=== PATIENT | female | born 1975 | race Caucasian/White ===

== ENCOUNTER 2016-11-26 05:53 | Day surgery (SDC) | payer BC, OTHER ==
[2016-11-23 11:52] VITALS: BMI 26.7
[2016-11-26] MEDS ORDERED: SUCCINYLCHOLINE CHLORIDE 200 MG/10 ML VIAL ONE (07:25)
[2016-11-26] MEDS ORDERED: LIDOCAINE HCL/PF 2% SDV 5ML VIAL ONE (07:25)
[2016-11-26] MEDS ORDERED: PROPOFOL 20 ML ONE ×2 (07:25→09:05)
[2016-11-26] MEDS ORDERED: MIDAZOLAM HCL 2 MG/2 ML SINGLE DOSE VIAL ONE (08:19)
[2016-11-26] MEDS ORDERED: DEXAMETHASONE SOD PHOSPHATE 4 MG/1 ML VIAL ONE (09:03)
[2016-11-26 09:58] VITALS: TEMP 98.4
[2016-11-26] MEDS ORDERED: oxyCODONE HCL 5 MG TABLET PO PRN (10:12)
[2016-11-26] MEDS ORDERED: ONDANSETRON 4 MG/2 ML VIAL IVPUSH PRN (10:12)
[2016-11-26] MEDS ORDERED: PROMETHAZINE HCL 25 MG/1 ML VIAL IVPUSH PRN (10:12)
[2016-11-26] MEDS ORDERED: ACETAMINOPHEN 325 MG TABLET (FP) PO PRN ×2 (10:14→12:51)
[2016-11-26] MEDS ORDERED: IBUPROFEN 400 MG TABLET (FP) PO PRN ×2 (10:14→12:51)
--- NOTE | 2016-11-26 10:14 | HP ---
History & Physical Update - History History: No Change - Physical Physical: No Change - Assessment Assessment: No Change - Plan Plan: No Change
[2016-11-26] MEDS ORDERED: LACTATED RINGERS SOLUTION 1,000 ML IV SCH (10:15)
[2016-11-26 12:31] VITALS: BP 95/63; PULSE 62
--- NOTE | 2016-11-26 15:54 | OP ---
Operative Note - Note: Operative Date: 11/26/16 Pre-Operative Diagnosis: Endometrial polyp. Submucosal myoma Operation: Hysteroscopic myomectomy. Suction DC Post-Operative Diagnosis: Same as Pre-op Anesthesia: General Estimated Blood Loss (mls): 30 Operative Report Dictated: Yes
--- NOTE | 2016-11-27 09:18 | OP ---
DATE OF OPERATION: 11/26/2016 SURGEON: Daisy Ignacio MD PREOPERATIVE DIAGNOSIS: Menorrhagia, endometrial polyps, and submucosal myoma. PROCEDURE: Patient was taken to the operating room, placed in dorsal lithotomy position, prepped and draped in the usual sterile fashion. A time-out was performed, in accordance with hospital regulations. A speculum was placed in the vagina. Anterior lip of the cervix was grasped with a single-tooth tenaculum. Cervix was then dilated to accommodate the operative hysteroscope. Hysteroscopy was then performed. A cavity was seen to be partially occluded anteriorly. Cautery was then used on the anterior portion of the uterus, and submucosal myoma was cut away. A large amount of anterior myoma was removed. Some endometrial polyps were seen and were also removed from the cavity. Suction dilatation and curettage was then performed. After incision cutting of the anterior aspect of the uterus and removal of polyps using cutting aspect of the resectoscope, suction dilatation and curettage was then performed. Estimated blood loss was about 30 mL. All instruments were then removed. Patient had tolerated the procedure well and was taken to the recovery room in stable condition. DAISY IGNACIO M.D. [id number]
--- NOTE | 2016-11-27 12:49 | PATH ---
Surgical Pathology Report Patient Name: BHUMI PAYNE [facility]. Rec. #: [id number] /Age/Gender: 1975 (Age: 40) / F Account: [id number] Location: [facility] SURGICAL Taken: 11/26/2016 Received: 11/26/2016 Reported: 11/27/2016 Physicians: Daisy Ignacio M.D. Specimen(s) Received UTERINE POLYP Clinical History Uterine polyp Final Diagnosis UTERINE POLYP, HYSTEROSCOPIC MYOMECTOMY, SUCTION DILATION AND CURETTAGE: POLYPOID FRAGMENTS OF SECRETORY ENDOMETRIUM WITH AREAS MOST CONSISTENT WITH ENDOMETRIAL POLYP. FRAGMENTS OF BENIGN SMOOTH MUSCLE. Electronically Signed Silvano Reyes M.D. Gross Description Received in formalin labeled "uterine polyp" is a 5.0 x 4.3 x 0.4 cm aggregate of flowers-pink soft tissue fragments. The formalin is filtered and the specimen is entirely submitted in 4 cassettes. /11/26/2016 saudi11/26/2016
== END 2016-11-26 12:00 | disposition home or self-care (01) ==
LOC: JASU-SURG 05:53
PROVIDERS: ATTEND Obstetrics & Gynecology
PROC: 0UB98ZX Excision of Uterus, Via Natural or Artificial Opening Endoscopic, Diagnostic (ICD-10-PCS; principal; 2016-11-26 08:30)
PROC: 0UDB8ZX Extraction of Endometrium, Via Natural or Artificial Opening Endoscopic, Diagnostic (ICD-10-PCS; 2016-11-26 08:30)
PROC: 0UB98ZZ Excision of Uterus, Via Natural or Artificial Opening Endoscopic (ICD-10-PCS; 2016-11-26 08:30)
DX: N92.0 Excessive and frequent menstruation with regular cycle (principal); N84.0 Polyp of corpus uteri; D25.0 Submucous leiomyoma of uterus
CPT/HCPCS: 84703; 88305-TC; 94760

== ENCOUNTER → 2021-02-09 | Day surgery (SDC) | payer BC, OTHER | END | disposition home or self-care (01) | LOC: FMAMMOTONE 08:32 | PROVIDERS: ATTEND Obstetrics & Gynecology | PROC: 0HBU3ZX Excision of Left Breast, Percutaneous Approach, Diagnostic (ICD-10-PCS; principal; 2021-02-09) | DX: D05.12 Intraductal carcinoma in situ of left breast (principal); R92.0 Mammographic microcalcification found on diagnostic imaging of breast | CPT/HCPCS: 19081; 76098-TC-FY; 87899; 88305-TC; 88341-TC; 88342-TC; A4648 ==

== ENCOUNTER 2021-04-04 04:22 | Day surgery (SDC) | payer BC, OTHER ==
[2021-03-31 14:14] VITALS: BMI 26.6
[2021-04-04] MEDS ORDERED: ISOSULFAN BLUE 50 MG/5 ML VIAL SQ ONE (09:20)
[2021-04-04] MEDS ORDERED: LIDOCAINE HCL 1%, 10 MG/ML (20ML VIAL) ONE (09:20)
[2021-04-04] MEDS ORDERED: ONDANSETRON 4 MG/2 ML VIAL IVPUSH PRN (10:14)
[2021-04-04] MEDS ORDERED: oxyCODONE HCL 5 MG TABLET PO PRN (10:14)
[2021-04-04] MEDS ORDERED: LACTATED RINGERS SOLUTION 1,000 ML IV SCH (10:15)
[2021-04-04] MEDS ORDERED: PROPOFOL 20 ML ONE (10:33)
[2021-04-04] MEDS ORDERED: MIDAZOLAM HCL 2 MG/2 ML SINGLE DOSE VIAL ONE (10:33)
[2021-04-04] MEDS ORDERED: ceFAZolin 2 GRAM PREMIX BAG IVPB ONE (10:39)
[2021-04-04] MEDS ORDERED: LIDOCAINE HCL 1%, 10 MG/ML (20ML VIAL) NR ONE (10:49)
[2021-04-04 15:26] VITALS: TEMP 97.6
[2021-04-04 15:31] VITALS: BP 110/60; PULSE 56
== END 2021-04-04 13:40 | disposition home or self-care (01) ==
LOC: JASU-SURG 04:22
PROVIDERS: ATTEND Surgery
PROC: 0HBU0ZZ Excision of Left Breast, Open Approach (ICD-10-PCS; principal; 2021-04-04 10:00)
DX: D05.12 Intraductal carcinoma in situ of left breast (principal)
CPT/HCPCS: 19281; 76098-TC-FY; 81025; 88307-TC; 88341-TC; 88342-TC; 94760

== ENCOUNTER 2021-04-18 04:29 | Day surgery (SDC) | payer BC, OTHER ==
[2021-04-17 14:54] VITALS: BMI 27.8
[2021-04-18] MEDS ORDERED: oxyCODONE HCL 5 MG TABLET PO PRN (15:37)
[2021-04-18] MEDS ORDERED: ONDANSETRON 4 MG/2 ML VIAL IVPUSH PRN (15:37)
[2021-04-18] MEDS ORDERED: PROMETHAZINE HCL 25 MG/1 ML VIAL IVPUSH PRN (15:37)
[2021-04-18] MEDS ORDERED: ceFAZolin SODIUM 1 GM VIAL IVPB ONE (16:30)
[2021-04-18] MEDS ORDERED: LIDOCAINE HCL 1%, 10 MG/ML (20ML VIAL) ONE (16:30)
[2021-04-18] MEDS ORDERED: DESFLURANE GAS 240 ML BOTTLE IH ONE (16:40)
[2021-04-18] MEDS ORDERED: LIDOCAINE HCL 1%, 10 MG/ML (20ML VIAL) NR ONE (16:59)
[2021-04-18 19:50] VITALS: BP 110/64; PULSE 64; TEMP 97.5
== END 2021-04-18 19:42 | disposition home or self-care (01) ==
LOC: JASU-SURG 04:29
PROVIDERS: ATTEND Surgery
PROC: 0HBU0ZZ Excision of Left Breast, Open Approach (ICD-10-PCS; principal; 2021-04-18 13:00)
DX: D05.12 Intraductal carcinoma in situ of left breast (principal)
CPT/HCPCS: 81025; 88307-TC; 88341-TC; 88342-TC; 94760

== ENCOUNTER 2021-07-11 04:15 | Day surgery (SDC) | payer BC, OTHER ==
[2021-07-06 10:26] VITALS: BMI 27.4
[2021-07-11] MEDS ORDERED: PROPOFOL 20 ML ONE ×2 (12:09→12:38)
[2021-07-11] MEDS ORDERED: MIDAZOLAM HCL 2 MG/2 ML SINGLE DOSE VIAL ONE (12:09)
[2021-07-11] MEDS ORDERED: ceFAZolin SODIUM 1 GM VIAL IVPB ONE (12:34)
[2021-07-11] MEDS ORDERED: LIDOCAINE HCL 1%, 10 MG/ML (20ML VIAL) NR ONE ×2 (12:38)
[2021-07-11] MEDS ORDERED: ONDANSETRON 4 MG/2 ML VIAL ONE (13:02)
[2021-07-11] MEDS ORDERED: DEXAMETHASONE SOD PHOSPHATE 4 MG/1 ML VIAL ONE (13:02)
[2021-07-11] MEDS ORDERED: ceFAZolin SODIUM 1 GM VIAL ONE (13:02)
[2021-07-11] MEDS ORDERED: oxyCODONE HCL 5 MG TABLET PO ONE (13:30)
[2021-07-11] MEDS ORDERED: KETOROLAC TROMETHAMINE 30 MG/1 ML VIAL IVPUSH ONE (13:30)
[2021-07-11] MEDS ORDERED: KETOROLAC TROMETHAMINE 30 MG/1 ML VIAL ONE (13:33)
[2021-07-11 15:04] VITALS: BP 112/70; PULSE 72; TEMP 97.2
== END 2021-07-11 15:05 | disposition home or self-care (01) ==
LOC: JASU-SURG 04:15
PROVIDERS: ATTEND Surgery
PROC: 0HBU0ZZ Excision of Left Breast, Open Approach (ICD-10-PCS; principal; 2021-07-11 10:30)
DX: D05.12 Intraductal carcinoma in situ of left breast (principal)
CPT/HCPCS: 81025

== ENCOUNTER 2024-06-01 04:34 | Day surgery (SDC) | payer BC, OTHER ==
[2024-05-26 11:09] VITALS: BMI 28.3
[2024-06-01] MEDS ORDERED: MIDAZOLAM HCL 2 MG/2 ML SINGLE DOSE VIAL ONE (13:51)
[2024-06-01] MEDS ORDERED: PROPOFOL 20 ML ONE (13:52)
[2024-06-01] MEDS ORDERED: oxyCODONE HCL 5 MG TABLET PO PRN (14:15)
[2024-06-01] MEDS ORDERED: ONDANSETRON 4 MG/2 ML VIAL IVPUSH PRN (14:15)
[2024-06-01] MEDS ORDERED: DEXAMETHASONE SOD PHOSPHATE 4 MG/1 ML VIAL ONE (14:39)
[2024-06-01] MEDS ORDERED: ceFAZolin SODIUM 1 GM VIAL ONE (14:39)
[2024-06-01] MEDS ORDERED: ONDANSETRON 4 MG/2 ML VIAL ONE (14:39)
[2024-06-01] MEDS ORDERED: KETOROLAC TROMETHAMINE 30 MG/1 ML VIAL ONE (14:48)
[2024-06-01 16:05] VITALS: TEMP 97.9
[2024-06-01 17:39] VITALS: BP 118/70; PULSE 75; RESP 20
== END 2024-06-01 17:22 | disposition home or self-care (01) ==
LOC: JASU-SURG 04:34
PROVIDERS: ATTEND Obstetrics & Gynecology
PROC: 0UB98ZZ Excision of Uterus, Via Natural or Artificial Opening Endoscopic (ICD-10-PCS; principal; 2024-06-01 13:00)
DX: N92.0 Excessive and frequent menstruation with regular cycle (principal); D25.0 Submucous leiomyoma of uterus; N85.6 Intrauterine synechiae; N84.1 Polyp of cervix uteri
CPT/HCPCS: 88305-TC; 94760